=== PATIENT | female | born 1970 | race Caucasian/White ===

== ENCOUNTER 2016-11-17 02:17 | Emergency (ER) | payer BC, OTHER ==
[2016-11-17 02:52] VITALS: BP 112/75
--- NOTE | 2016-11-17 02:59 | ED Physician Documentation ---
General Adult - HISTORIAN Historian: patient - HPI Stated Complaint: Right Arm pain Chief Complaint: General Adult Onset: hours Timing: still present Severity: moderate Further Comments: yes (Pt is a 46 yo female who awoke from sleep with pain in her R arm. Pain seemed to radiate from wrist to shoulder. Pt does not recall twisting or injuring her arm in any way. Pt had been drinking alcohol last evening before going to bed. 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.) - ROS CONST: no problems EYES/ENT: none CVS/RESP: none GI/: none MS/SKIN/LYMPH: other (R arm pain) - PAST HX Past History: other (depression) Allergies/Adverse Reactions: Allergies Allergy/AdvReac Type Severity Reaction Status Date / Time No Known Allergies Allergy Verified 11/17/16 02:27 Home Medications: Ambulatory Orders Medication Instructions Recorded Paroxetine HCl [Paxil] 40 mg PO QDAY 11/17/16 - SOCIAL HX Smoking History: less than 1 pack/day Alcohol Use: occasionally - FAMILY HX Family History: No - VITAL SIGNS Vital Signs: Vital Signs Temp Pulse Resp BP Pulse Ox 88 16 112/75 96 11/17/16 02:25 11/17/16 02:25 11/17/16 02:25 11/17/16 02:25 - REVIEWED ASSESSMENTS Nursing Assessment Reviewed: Yes Vitals Reviewed: Yes Progress - Progress Progress: Pt's pain improved in ER, possibly from her having taken 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 Pt declined x-rays and meds. Sling provided in ER. Continue otc NSAIDS. ED Results Lab/Radiology - Orders Orders: ED Orders Category Date Time Status Sling to Affected Extremity 1T Care 11/17/16 02:39 Active General Adult Physical Exam - PHYSICAL EXAM GENERAL APPEARANCE: mild distress NECK: normal inspection, supple RESPIRATORY: no resp distress, chest non-tender, breath sounds normal CVS: reg rate & rhythm, heart sounds normal BACK: normal inspection, no CVA tenderness SKIN: warm/dry, normal color EXTREMITIES: other (Upper extremities: FROM, normal strength; normal rotator cuff maneuvers.) NEURO: oriented X3, motor nml, sensation nml Discharge Clincal Impression: R arm pain Referrals: Florence Merino MD [Primary Care Provider] - 2 Days Home Medications: Ambulatory Orders Paroxetine HCl [Paxil] 40 mg PO QDAY 11/17/16 Condition: Stable Decision to Admit: NO Decision Time: 02:49
== END 2016-11-17 02:50 ==
LOC: ED 02:17
DX: M79.601 Pain in right arm (principal)
CPT/HCPCS: 99283

== ENCOUNTER 2018-01-07 10:16 | Outpatient (CLI) | payer OTHER | END 2018-01-07 14:10 | LOC: LABRHC 10:16 | PROVIDERS: ATTEND Family Medicine | DX: Z12.4 Encounter for screening for malignant neoplasm of cervix (principal) | CPT/HCPCS: 88148; G0143 ==

== ENCOUNTER 2018-03-30 17:13 | Outpatient (CLI) | payer OTHER | END 2018-03-30 17:14 | LOC: LABRHC 17:13 | PROVIDERS: ATTEND Nurse Practitioner Family | DX: R30.0 Dysuria (principal) | CPT/HCPCS: 87086; 87186 ==

== ENCOUNTER 2018-06-22 02:13 | Emergency (ER) | payer OTHER ==
--- NOTE | 2018-06-22 02:15 | ED Physician Documentation ---
Foot Injury - HISTORIAN Historian: patient - HPI Stated Complaint: fell and has left ankle pain Chief Complaint: Ankle Injury Onset: hours (1) Where: family Severity: severe Context: fall Associated Symptoms:: swelling, snapping sensation, popping sensation, unable to bear weight. denies: tingling, numbness distally, became dizzy, fainted Modifying Factors:: pain on movement Further Comments: yes - ROS CONST: no problems MS/SKIN/LYMPH: none - PAST HX Past History: none Immunizations: UTD Allergies/Adverse Reactions: Allergies Allergy/AdvReac Type Severity Reaction Status Date / Time No Known Drug Allergies Allergy Unknown Verified 06/22/18 03:13 Home Medications: Ambulatory Orders Medication Instructions Recorded Paroxetine HCl [Paxil] 40 mg PO D 06/22/18 - SOCIAL HX Smoking History: cigarettes Alcohol Use: occasionally Drug Use: none - FAMILY HX Family History: none - VITAL SIGNS Vital Signs: Vital Signs Temp Pulse Resp BP Pulse Ox 112/75 11/17/16 02:50 - REVIEWED ASSESSMENTS Nursing Assessment Reviewed: Yes Vitals Reviewed: Yes Progress - Progress Progress: 0343: [facility] notified about possible transfer - Tre he will contact ortho - She continues to refuse any further Morphine states pain is "fine" DG 0400: Xrays faxed -- pt is in room trying to find her own ride to [place] DG 0440: He states his ortho wants this transferred to ER for sedation and reduction DG ED Results Lab/Radiology - Radiology Radiology Impressions: Three views of the left foot Clinical history: Slipped and fell. Pain and bruising. Findings: Examination left foot in plantar, lateral and oblique views demonstrates fracture of the distal fibula and tibia. Calcaneal spur is present at site of insertion of plantar aponeurosis. There is no obvious fracture of the bones of the foot. Impression: 1. Distal tibia and fibular fractures. 2. Calcaneal spur. Electronically signed on Jun 22, 2018 3:24:35 AM FOXING CUTTING MACHINE OPERATOR by: Herber Gomes Three views of left ankle Clinical history: Slipped and fell. Pain and swelling. Findings: Examination left ankle in AP, lateral and oblique views demonstrates bimalleolar fracture with lateral subluxation of the talus. There is a transverse fracture of the medial malleolus and oblique fracture of the distal fibula. Posterior malleolus appears intact. Impression: 1. Bimalleolar fracture with lateral subluxation of the talus. Electronically signed on Jun 22, 2018 3:25:42 AM FOXING CUTTING MACHINE OPERATOR by: Herber Gomes Foot Injury Physical Exam - Physical Exam General Appearance: alert, mild distress (screaming and yelling ) Foot: bilateral foot: non-tender, normal inspection, normal range of motion, no evidence of injury, abrasions/lacerations, bone tenderness Ankle: right: non-tender, normal inspection, normal range of motion, no evidence of injury, abrasions/laceration, bone tenderness, left: pain, soft tissue tenderness, swelling (pulses are present and cap refill. sensation + toe movement unable to move ankle ) Gait: unable to bear weight Neuro: sensation nml Vascular: no vascular compromise Leg/Knee/Thigh: uninjured above ankle Skin: intact, warm Head/ENT: nml inspection Neck/Back: nml inspection Resp/CVS: chest non-tender, breath sounds nml, heart sounds nml, no resp. distress, lungs clear, reg. rate & rhythm Abdomen: non-tender Discharge Clincal Impression: Fibula fracture Qualifiers: Encounter type: initial encounter Fibula location: distal Fracture type: closed Fracture morphology: other fracture Laterality: left Qualified Code(s): S82.832A - Other fracture of upper and lower end of left fibula, initial encounter for closed fracture Referrals: Florence Merino MD [Primary Care Provider] - 2 Days Comments: 0445: Return call from Tre [facility]ana accepting physician Dr Mayra MERCEDES DG Condition: Fair Disposition: 02 XFER S[facility]M HOSP Decision to Admit: NO Date of Decison to Admit: 06/22/18 Decision Time: 04:45
[2018-06-22] MEDS ORDERED: fentaNYL CITRATE/PF 100 MCG/2 ML INJ. IVP ONE (02:28)
[2018-06-22] MEDS ORDERED: 0.9 % SODIUM CHLORIDE 1,000 ML IV ONE ×2 (02:28→04:20)
[2018-06-22] MEDS ORDERED: MORPHINE SULFATE 10 MG/ML VIAL IVP STA (02:38)
[2018-06-22] MEDS ORDERED: MORPHINE SULFATE 10 MG/ML VIAL ONE (02:41)
--- NOTE | 2018-06-22 04:57 | Diagnostic Imaging Report ---
JAZZ GEORGE [facility] [address] [facility].[address] [id number] Report Submission Date: Jun 22, 2018 3:24:35 AM TARGETING ACQUISITION OFFICER Patient Study Name: BERNIE BRANDON Date: Jun 22, 2018 2:50:42 AM TARGETING ACQUISITION OFFICER Modality Type: DX Gender: F Description: LOWER EXTREMITY : 74 Institution: [facility] Physician: JAZZ GEORGE Three views of the left foot Clinical history: Slipped and fell. Pain and bruising. Findings: Examination left foot in plantar, lateral and oblique views demonstrates fracture of the distal fibula and tibia. Calcaneal spur is present at site of insertion of plantar aponeurosis. There is no obvious fracture of the bones of the foot. Impression: 1. Distal tibia and fibular fractures. 2. Calcaneal spur. Electronically signed on Jun 22, 2018 3:24:35 AM TARGETING ACQUISITION OFFICER by: Herber WILDE
--- NOTE | 2018-06-22 04:58 | Diagnostic Imaging Report ---
JAZZ GEORGE [facility] [address] [facility].[address] [id number] Report Submission Date: Jun 22, 2018 3:25:42 AM VOCATIONAL EVALUATOR Patient Study Name: BERNIE BRANDON Date: Jun 22, 2018 2:49:37 AM VOCATIONAL EVALUATOR Modality Type: DX Gender: F Description: LOWER EXTREMITY : 74 Institution: [facility] Physician: JAZZ GEORGE Three views of left ankle Clinical history: Slipped and fell. Pain and swelling. Findings: Examination left ankle in AP, lateral and oblique views demonstrates bimalleolar fracture with lateral subluxation of the talus. There is a transverse fracture of the medial malleolus and oblique fracture of the distal fibula. Posterior malleolus appears intact. Impression: 1. Bimalleolar fracture with lateral subluxation of the talus. Electronically signed on Jun 22, 2018 3:25:42 AM VOCATIONAL EVALUATOR by: Herber WILDE
[2018-06-22] MEDS: MORPHINE SULFATE 10 MG/ML VIAL IVP ONE ×2 (05:01→05:15)
[2018-06-22 05:26] VITALS: BP 125/78
[2018-06-22 10:15] LABS: APPEARANCE,URINE CLEAR (CLEAR); COLOR,URINE YELLOW (YELLOW); OCCULT BLOOD,URINE NEGATIVE (NEGATIVE)
[2018-06-22 10:16] LABS: UROBILINOGEN URINE 0.2 Eu (0.2-1.0)
[2018-06-22 11:38] LABS: CANNABINOIDS NEGATIVE ng/mL (< 50); METHYLENEDIOXYMETHAMPHETAMINE NEGATIVE ng/mL (<500)
[2018-06-23 16:18] LABS: eGFR (Non-African) > 60
[2018-06-23 16:19] LABS: BASOPHILS % 0.4 (0.0-1.5); EOSINOPHILS % 0.9 % (0.0-6.8); MEAN CORPUSCULAR HEMOGLOBIN 30.4 pg (28.0-34.0); MONOCYTES % 7.6 % (0.0-11.0); NEUTROPHILS # 4.4 # k/uL (1.4-7.7)
== END 2018-06-22 05:17 | disposition short-term general hospital (02) ==
LOC: ED 02:13
DX: S82.842A Displaced bimalleolar fracture of left lower leg, initial encounter for closed fracture (principal); M79.662 Pain in left lower leg; W19.XXXA Unspecified fall, initial encounter; Y93.9 Activity, unspecified; Y92.9 Unspecified place or not applicable; Z79.899 Other long term (current) drug therapy
CPT/HCPCS: 36415; 73610; 73630; 80053; 80320; 80377; 81002; 81025; 85025; 85610; 96365; 96366; 96375; 96376; 99285; J2270; J7030; 87086; G0480; G0481; S1016

== ENCOUNTER 2019-01-24 16:24 | Outpatient (CLI) | payer OTHER, MEDICAID | END 2019-01-24 16:26 | LOC: LAB 16:24 | PROVIDERS: ATTEND Family Medicine | DX: N95.1 Menopausal and female climacteric states (principal) | CPT/HCPCS: 36415; 82672; 83001; 83002 ==

== ENCOUNTER 2019-02-24 14:28 | Outpatient (CLI) | payer OTHER, MEDICAID | END 2019-02-24 14:30 | LOC: LABRHC 14:28 | PROVIDERS: ATTEND Family Medicine | DX: Z12.4 Encounter for screening for malignant neoplasm of cervix (principal) | CPT/HCPCS: 87491; 87591; 88148; G0143 ==